=== PATIENT | male | born 1960 | race Caucasian/White ===

== ENCOUNTER 2017-04-13 18:43 | Inpatient (IN) | payer OTHER ==
[~2017-04-13] VITALS: Ht 185.4 cm; Wt 103.6 kg
[2017-04-13 20:12] LABS: BASOPHIL % 1.2 % (0-2); PLATELET COUNT 263 x10^3mcL (130-400); RED CELL DISTRIBUTION WIDTH 13.4 % (11.5-14.5)
[2017-04-13 20:23] LABS: CALCIUM 9.1 mg/dL (8.5-10.1); CARBON DIOXIDE 29.2 mmol/L (21-32); CHLORIDE SERUM 105 mmol/L (98-107); GFR1 > 60 mL/min; GLUCOSE SERUM 151 mg/dL (74-106); SODIUM SERUM 144 mmol/L (136-145)
[2017-04-13 20:27] LABS: ALKALINE PHOSPHATASE 86 U/L (46-116); ALT/SGPT 30 U/L (16-63); AST/SGOT 19 U/L (15-37); BILIRUBIN TOTAL 0.4 mg/dL (0.20-1.00); LIPASE 91 IU/L (73-393); TOTAL PROTEIN, SERUM 8.2 g/dL (6.4-8.2)
[2017-04-13 22:28] VITALS: BP 145/92
[2017-04-13 22:37] VITALS: Ht 185.4 cm; Wt 103.6 kg
[2017-04-13 22:41] LABS: CHOLESTEROL/HDL RATIO 2.4; MAGNESIUM 1.8 mg/dL (1.8-2.4); PHOSPHOROUS 3.1 mg/dL (2.5-4.9)
[2017-04-13 22:43] LABS: T3 TOTAL 1.17 ng/mL
[2017-04-13 22:46] LABS: FREE T4 0.96 ng/dL (0.76-1.46); FREE THYROXINE INDEX 2.7 ug/dL (1.4-4.5); T4(THYROXINE) 8.9 ug/dL (4.7-13.3)
[2017-04-14 05:25] VITALS: BP 139/78
[2017-04-14 05:27] LABS: UA SPECIFIC GRAVITY >=1.030 (1.005-1.035); microscopic required? YES; urine erythrocyte 3+ (NEGATIVE)
[2017-04-14 05:49] LABS: AMPHETAMINE QUAL UR NONE DETECTED (NEG <=1000)
[2017-04-14 06:24] LABS: BASOPHIL % 0.1 % (0-2); PLATELET COUNT 250 x10^3mcL (130-400); RED CELL DISTRIBUTION WIDTH 13.3 % (11.5-14.5)
[2017-04-14 06:35] LABS: CALCIUM 8.4 mg/dL (8.5-10.1); CARBON DIOXIDE 27.4 mmol/L (21-32); CHLORIDE SERUM 108 mmol/L (98-107); CREATININE SERUM 0.9 mg/dL (0.7-1.3); GFR1 > 60 mL/min; GLUCOSE SERUM 126 mg/dL (74-106); MAGNESIUM 1.8 mg/dL (1.8-2.4); PHOSPHOROUS 2.7 mg/dL (2.5-4.9); POTASSIUM SERUM 3.8 mmol/L (3.5-5.1); SODIUM SERUM 145 mmol/L (136-145)
[2017-04-14 07:50] VITALS: BP 146/85
[2017-04-14 17:19] VITALS: BP 131/89
[2017-04-14 20:47] VITALS: BP 144/89
[2017-04-15 05:37] VITALS: BP 112/70
[2017-04-15 06:35] LABS: CALCIUM 8.2 mg/dL (8.5-10.1); CARBON DIOXIDE 28.4 mmol/L (21-32); CHLORIDE SERUM 105 mmol/L (98-107); GFR1 > 60 mL/min; GLUCOSE SERUM 120 mg/dL (74-106); POTASSIUM SERUM 3.8 mmol/L (3.5-5.1); SODIUM SERUM 141 mmol/L (136-145)
[2017-04-15 06:45] LABS: PLATELET COUNT 215 x10^3mcL (130-400); RED CELL DISTRIBUTION WIDTH 14.1 % (11.5-14.5)
[2017-04-15 06:47] LABS: BASOPHIL % 0 % (0-2)
[2017-04-15 10:14] VITALS: BP 122/86
[2017-04-15 14:46] VITALS: BP 128/80
[2017-04-15 17:58] VITALS: BP 124/83
[2017-04-15 23:30] VITALS: BP 135/85
[2017-04-16 05:38] VITALS: BP 145/93
[2017-04-16 07:20] LABS: PLATELET COUNT 212 x10^3mcL (130-400); RED CELL DISTRIBUTION WIDTH 13.6 % (11.5-14.5)
[2017-04-16 07:26] LABS: BASOPHIL % 3.4 % (0-2)
[2017-04-16 07:27] LABS: CALCIUM 8.4 mg/dL (8.5-10.1); CHLORIDE SERUM 104 mmol/L (98-107); CREATININE SERUM 0.9 mg/dL (0.7-1.3); GFR1 > 60 mL/min; GLUCOSE SERUM 112 mg/dL (74-106); POTASSIUM SERUM 3.9 mmol/L (3.5-5.1); SODIUM SERUM 137 mmol/L (136-145)
[2017-04-16 10:19] VITALS: BP 135/90
[2017-04-16 14:45] VITALS: BP 144/88
[2017-04-16 17:11] VITALS: BP 127/87
[2017-04-16 19:20] VITALS: BP 131/79
[2017-04-16 21:25] VITALS: BP 130/76
[2017-04-17 05:49] VITALS: BP 139/73
[2017-04-17 06:19] LABS: CALCIUM 8.3 mg/dL (8.5-10.1); CARBON DIOXIDE 28.8 mmol/L (21-32); CHLORIDE SERUM 105 mmol/L (98-107); CREATININE SERUM 0.8 mg/dL (0.7-1.3); GFR1 > 60 mL/min; GLUCOSE SERUM 107 mg/dL (74-106); MAGNESIUM 1.8 mg/dL (1.8-2.4); PHOSPHOROUS 2.9 mg/dL (2.5-4.9); POTASSIUM SERUM 3.7 mmol/L (3.5-5.1); SODIUM SERUM 138 mmol/L (136-145)
[2017-04-17 06:56] LABS: BASOPHIL % 0.2 % (0-2); PLATELET COUNT 228 x10^3mcL (130-400); RED CELL DISTRIBUTION WIDTH 13.4 % (11.5-14.5)
[2017-04-17 09:37] VITALS: BP 139/90
[2017-04-17 11:29] VITALS: BP 139/90
[2017-04-17] MEDS ORDERED: TYL325 PO (13:53)
[2017-04-17] MEDS ORDERED: COL100 PO (13:57)
[2017-04-17] MEDS ORDERED: APAP/HYDROCODON1 T13 PO (13:58)
== END 2017-04-17 14:54 | disposition home or self-care (01) | DRG 417 ==
LOC: ED 18:43 → DU 21:54 → MU 04-17 10:57
PROVIDERS: Emergency Medicine; Family Medicine; Surgery; ADMIT Family Medicine
PROC: 8E0W4CZ Robotic Assisted Procedure of Trunk Region, Percutaneous Endoscopic Approach (ICD-10-PCS; 2017-04-14)
PROC: 0FT44ZZ Resection of Gallbladder, Percutaneous Endoscopic Approach (ICD-10-PCS; principal; 2017-04-14 11:00)
DX: K80.62 Calculus of gallbladder and bile duct with acute cholecystitis without obstruction (principal); N17.0 Acute kidney failure with tubular necrosis; K82.1 Hydrops of gallbladder; N39.0 Urinary tract infection, site not specified; I16.0 Hypertensive urgency; I10 Essential (primary) hypertension; E87.8 Other disorders of electrolyte and fluid balance, not elsewhere classified; E83.51 Hypocalcemia; Z88.5 Allergy status to narcotic agent
CPT/HCPCS: 83880; 84439; 94150; J0290; J0330; J0690; J0696; J1170; J1885; J2175; J2250; J2405; J2704; J2710; J3010; J3490; J7030; J7120; Q0092